=== PATIENT | female | born 1960 | race Caucasian/White ===

== ENCOUNTER 2020-12-16 19:35 | Emergency (ER) | payer OTHER, SELFPAY ==
[2020-12-16 19:46] VITALS: BP 141/48; PULSE 87; RESP 16; TEMP 36.3; O2SAT 97
--- NOTE | 2020-12-16 21:32 | ED.HEATRA ---
HPI - Head Injury General Chief complaint: Head Injury Stated complaint: Fall, head injury yesterday Time Seen by Provider: 12/16/20 21:20 History of Present Illness HPI Narrative: 60 yo female presents to the ED for a head injury. Fall 2 days ago. Struck her forehead on the ground. No LOC. Moderate pain. Increasing swelling and brusing to the forehead and periorbital region. No vision change, weakness, numbness, confusion, blood thinners. Related Data Allergies Allergy/AdvReac Type Severity Reaction Status Date / Time codeine Allergy Mild Unknown Verified 12/16/20 19:46 Penicillins Allergy Unknown Unknown Verified 12/16/20 19:46 Review of Systems Review of Systems: All systems reviewed & are unremarkable except as noted in HPI and below PMFSH Family History Family History Sibling Family history of chronic obstructive pulmonary disease Family history of diabetes mellitus in first degree relative Father Family history of diabetes mellitus in first degree relative Family history unknown, Onset Age: 63 Mother Family history of malignant neoplasm, Onset Age: 53 Other Diabetes mellitus Family history of cardiovascular disease Hypertension Social History Social History Smoking status: Heavy tobacco smoker Second hand tobacco smoke exposure: No Alcohol intake: never Gender identity (if verbalized by the patient): Female Exam Const: General: no acute distress and alert Orientation/consciousness: patient oriented x3 HENMT: Head: contusion left frontal Ears: TM's normal bilaterally General nose exam: Normal external nose present Face and sinus: sinuses nontender Teeth and gingiva: abnormal dentition Eyes: Conjunctivae: conjunctivae normal Pupils: Equal, round and reactive pupils present EOM: EOM not intact bilaterally Other: Bruising to periorbital region bilaterally Neck: Neck: normal visual inspection Resp: Effort & Inspection: normal respiratory effort Auscultation: clear to auscultation bilaterally Cardio: Rate: regular rate Rhythm: regular rhythm Back/Spine/Pelvis: Cervical Spine: normal cervical lordosis, No Cervical spine tenderness, No step off deformity and cervical ROM abnormal Course Vital Signs Vital signs: Vital Signs Temperature 36.3 C L 12/16/20 19:46 Pulse Rate 87 12/16/20 19:46 Respiratory Rate 16 12/16/20 19:46 Blood Pressure 141/48 H 12/16/20 19:46 Pulse Oximetry 97 12/16/20 19:46 Temperature 36.4 C L 12/16/20 22:08 Pulse Rate 86 12/16/20 22:08 Respiratory Rate 18 12/16/20 22:08 Blood Pressure 135/82 12/16/20 22:08 Pulse Oximetry 95 12/16/20 22:08 MDM - Head Injury MDM Narrative Medical decision making narrative: No indication for imaging. Differential Diagnosis Differential diagnosis: Likely concussion without loss of consciousness and other Medical Records Attestation: I reviewed the patient's medical records. Discharge Plan Discharge Clinical Impression: Scalp hematoma Patient Disposition: Home, Self-Care Condition: Stable Instructions: Head Injury (ED), Hematoma (ED) Follow-up/Referrals: Juancarlos,Minda Delgado MD [Primary Care Provider] - Stand Alone Forms: Work/School Release IP
[2020-12-16 22:08] VITALS: BP 135/82; PULSE 86; RESP 18; TEMP 36.4; O2SAT 95
== END 2020-12-16 22:08 | disposition home or self-care (01) ==
LOC: ANHED 21:40
PROVIDERS: Emergency Provider Emergency Medicine; PCP Family Medicine
DX: S00.83XA Contusion of other part of head, initial encounter (principal); S05.12XA Contusion of eyeball and orbital tissues, left eye, initial encounter; S05.11XA Contusion of eyeball and orbital tissues, right eye, initial encounter; F17.200 Nicotine dependence, unspecified, uncomplicated; W19.XXXA Unspecified fall, initial encounter
CPT/HCPCS: 99282

== ENCOUNTER 2022-06-11 10:02 | Emergency (ER) | payer OTHER, SELFPAY ==
--- NOTE | ~2022-06-11 | XR_ITS ---
Clinical Indication: Wheezing, hypertension PA and lateral views of the chest: Comparison: 04/26/2008 Findings: Probable calcified left upper lobe granuloma. The lungs are otherwise clear, without eviden ce of focal consolidation or pleural effusion. Cardiomediastinal silhouette is within normal limits. Bones and soft tissues are unremarkable. Impression: No significant abnormality seen. Reviewed, dictated and finalized at location . ESS DIRECTOR Impression: No significant abnormality seen.
--- NOTE | 2022-06-11 10:08 | ED.URI ---
HPI - URI/Sore Throat General Chief Complaint: Upper Respiratory Infection Stated Complaint: uri Time Seen by Provider: 06/11/22 10:15 Source: patient and RN notes reviewed Mode of arrival: ambulatory Limitations: no limitations History of Present Illness HPI Narrative: 62-year-old female presents concern for cough and chills for 2 days. She reports she had flu 2 weeks ago and no symptoms improved. She reports she was told she had COPD, she has prescribed inhalers that she does not use because ?she does not need them.? MD elicited complaint: cough Related Data Home Medications Medication Instructions Recorded Confirmed atorvastatin 20 mg tablet mg 06/11/22 lorazepam 06/11/22 trazodone 100 mg tablet mg 06/11/22 Allergies Allergy/AdvReac Type Severity Reaction Status Date / Time codeine Allergy Mild Unknown Verified 06/11/22 10:09 Penicillins Allergy Unknown Unknown Verified 06/11/22 10:09 Review of Systems Review of Systems: CONSTITUTIONAL: Reports malaise, chills, sweats EYES: Denies visual changes, redness, or discharge. ENT: Reports rhinorrhea, congestion. Denies sinus pain, otalgia and sore throat. CARDIOVASCULAR: Denies chest pain, palpitations, or edema. RESPIRATORY: Reports cough, chest congestion. Denies dyspnea. GASTROINTESTINAL: Denies abdominal pain, nausea, vomiting, diarrhea SKIN: Denies rash or itching. MUSCULOSKELETAL: Reports myalgia. NEUROLOGIC: Denies headache. All systems reviewed & are unremarkable except as noted in HPI and below PMFSH Family History Family History Sibling Family history of chronic obstructive pulmonary disease Family history of diabetes mellitus in first degree relative Father Family history of diabetes mellitus in first degree relative Family history unknown, Onset Age: 63 Mother Family history of malignant neoplasm, Onset Age: 53 Other Diabetes mellitus Family history of cardiovascular disease Hypertension Social History Social History Smoking status: Heavy tobacco smoker Second hand tobacco smoke exposure: No Alcohol intake: never Gender identity (if verbalized by the patient): Female Comments At time of signature, agree with nursing past medical, surgical, social and family history. There is no relevant family history pertinent to the presenting complaint Exam Narrative: GENERAL: Well-appearing, well-nourished, and in no acute distress. HEAD: Normocephalic EYES: PERRLA, conjunctivae clear ENT: Nares clear, clear discharge. Mucous membranes moist. TM pearly collins with dull light reflex bilaterally; no tragal tenderness. Oropharynx erythematous without lesions. Tonsils not enlarged and without exudate, no drooling, no hoarseness, no trismus, uvula midline. NECK: Supple. No lymphadenopathy CHEST: Expiratory and expiratory wheeze noted throughout, aeration good. Clear to auscultation, breath sounds equal. No rhonchi, rales, or stridor. No respiratory distress, speaks in full sentences. HEART: Regular rate and rhythm. No murmur heard. SKIN: Warm, dry, no rash. NEURO: Alert and oriented x3. PSYCH: Normal mood and affect Course Course Emergency Course: Patient is aware of diagnosis, understands and agrees to treatment plan. Anticipatory guidance given. Patient agrees to follow-up as directed and is aware of reasons to seek care at the emergency department. Portions of this record may have been created with voice recognition software Level of Care: Express Care Visit Vital Signs Vital signs: Reviewed. MDM - URI/Sore Throat MDM Narrative Medical decision making narrative: Differential diagnosis considered: Gonzalez virus, strep pharyngitis, allergic rhinitis, upper respiratory tract infection, sinusitis, rhinosinusitis, nasopharyngitis. viral pharyngitis, otitis media, otitis externa, pneumonia, bronchit
[2022-06-11 10:13] VITALS: BP 144/54; PULSE 74; RESP 16; TEMP 36.8; O2SAT 97
== END 2022-06-11 11:07 | disposition home or self-care (01) ==
PROVIDERS: Emergency Provider Nurse Practitioner; PCP Nurse Practitioner Family
DX: J44.1 Chronic obstructive pulmonary disease with (acute) exacerbation (principal); Z20.822 Contact with and (suspected) exposure to COVID-19; F17.290 Nicotine dependence, other tobacco product, uncomplicated
CPT/HCPCS: 71046; 87426; 99213; C9803; G0463

== ENCOUNTER 2023-07-12 08:17 | Emergency (ER) | payer OTHER, SELFPAY ==
[2023-07-12 08:26] VITALS: BP 133/64; PULSE 72; RESP 16; TEMP 36.3; O2SAT 99
--- NOTE | 2023-07-12 08:43 | ED.URI ---
HPI - URI/Sore Throat General Chief Complaint: Upper Respiratory Infection Stated Complaint: Sinus/Ears Irritation Time Seen by Provider: 07/12/23 08:43 Source: patient Mode of arrival: ambulatory Limitations: no limitations History of Present Illness HPI Narrative: 63-year-old female presents with complaint nasal congestion, sinus pressure, headache for the past 4 days. Afebrile. No coughing. Sore throat painful at night and in the morning due to drainage. Took a few doses of cold and sinus medication but states was not working so she stopped. Hai states this is the longest she has had a cold and thinks she needs a Z-Ted. Patient well-appearing. All systems reviewed and negative except as noted above. Related Data Home Medications Medication Instructions Recorded Confirmed atorvastatin 20 mg tablet 20 mg PO DAILY 06/11/22 07/12/23 trazodone 100 mg tablet 100 mg PO DAILY 06/11/22 07/12/23 carisoprodol 250 mg tablet See Rx Instructions .Route .COMPLEX 07/12/23 07/12/23 hydrochlorothiazide 25 mg tablet 25 mg PO DAILY 07/12/23 07/12/23 lorazepam 1 mg tablet 1 mg PO TID 07/12/23 07/12/23 nicotine 14 mg/24 hr daily 14 mg transdermal DAILY 07/12/23 07/12/23 transdermal patch zolpidem 5 mg tablet 5 mg PO DAILY 07/12/23 07/12/23 Allergies Allergy/AdvReac Type Severity Reaction Status Date / Time codeine Allergy Mild Itching Verified 07/12/23 08:51 Penicillins Allergy Mild Rash Verified 07/12/23 08:51 Review of Systems Review of Systems: CONSTITUTIONAL: Denies fever, chills, or sweats. EYES: Denies visual changes, redness, or discharge. ENT: Reports rhinorrhea, congestion, sore throat. Denies otalgia. CARDIOVASCULAR: Denies chest pain, palpitations, or edema. RESPIRATORY: Denies cough or dyspnea. GASTROINTESTINAL: Denies abdominal pain, nausea, vomiting, or diarrhea. GENITOURINARY: Denies dysuria or hematuria. SKIN: Denies rash or itching. MUSCULOSKELETAL: Denies back pain, joint pain, or myalgia. NEUROLOGIC: Denies headache, numbness, or weakness. PSYCHIATRIC: Denies anxiety or depression. All other systems reviewed are negative, except as documented in HPI. PMFSH Family History Family History Sibling Family history of chronic obstructive pulmonary disease Family history of diabetes mellitus in first degree relative Father Family history of diabetes mellitus in first degree relative Family history unknown, Onset Age: 63 Mother Family history of malignant neoplasm, Onset Age: 53 Other Diabetes mellitus Family history of cardiovascular disease Hypertension Social History Social History Smoking status: Heavy tobacco smoker Second hand tobacco smoke exposure: No Alcohol intake: never Gender identity (if verbalized by the patient): Female Comments At time of signature, agree with nursing past medical, surgical, social and family history. There is no relevant family history pertinent to the presenting complaint. Exam Narrative: GENERAL: This is a well-nourished, well-developed patient, in no apparent distress. HEAD: normocephalic, atraumatic. EYES: PERRL. Sclera clear/white. Vision is grossly intact. EARS: External ears normal, auditory canals clear and without drainage, TMs normal without perforation. Hearing grossly intact. NOSE: External nose normal with clear nasal drainage, erythema and mild swelling to bilateral nares. THROAT: Mucous membranes moist, Erythema with postnasal drainage NECK: Neck supple, non-tender without lymphadenopathy, masses or thyromegaly. CARDIOVASCULAR: Regular rate and rhythm without murmurs, gallops, or rubs. RESPIRATORY: Clear to auscultation. Breath sounds equal bilaterally. No wheezes, rales, or rhonchi. SKIN: warm, Dry, intact with no suspicious lesions or rash, good texture and turgor. NEURO: awake, alert, an
== END 2023-07-12 08:59 | disposition home or self-care (01) ==
PROVIDERS: Emergency Provider Nurse Practitioner Family; PCP Family Medicine
DX: J01.90 Acute sinusitis, unspecified (principal); F17.200 Nicotine dependence, unspecified, uncomplicated; E78.00 Pure hypercholesterolemia, unspecified; I10 Essential (primary) hypertension; J44.9 Chronic obstructive pulmonary disease, unspecified; F41.9 Anxiety disorder, unspecified; Z86.16 Personal history of COVID-19
CPT/HCPCS: 87081; 87880; 99213; G0463

== ENCOUNTER 2023-09-04 08:15 | Emergency (ER) | payer OTHER, SELFPAY ==
--- NOTE | ~2023-09-04 | CT_ITS ---
EXAMINATION: CT diagnostic chest w con DATE: 09/04/2023 10:06 INDICATION: right medial clavicle swelling TECHNIQUE: Computed tomography (CT) of the chest was performed with 100 mL Omnipaque-350 intravenous contrast. Additional 3D reconstructions utilizing coronal maximum intensity projection (MIP) were per formed. Automated exposure control and iterative reconstruction technique were employed. The dose-dangelo gth product was 356.27 mGy-cm. COMPARISON: None FINDINGS: Dependent predominant mosaic attenuation in the lungs likely related to expiratory phase of imaging w ith atelectasis and subsegmental regions of air trapping related to small airway disease. Cluster of calcified nodules in the posterior lingula and calcified left hilar lymph nodes consistent with old g ranulomatous disease. No pneumonia, pulmonary edema, pleural effusion or pneumothorax. Heart size is normal. No pericardial effusion. Ectatic ascending thoracic aorta measuring up to 3.9 cm maximal diam eter. No aortic dissection. No pathologically enlarged thoracic lymphadenopathy. Diffuse scattered sm all hepatic and splenic calcifications consistent with old granulomatous disease. The marker indicati ng the region of concern is positioned anterior to the inferior neck slightly to the right of midline overlying the right thyroid lobe where there is a 1.3 cm right thyroid nodule. No other abnormal mas ses or fluid collections identified. Severe lower cervical and lower thoracic spondylosis with mild s pondylosis of the more cephalad thoracic spine. IMPRESSION: 1. No etiology identified for the reported swelling at the medial right clavicle. No acute cardiopulm onary disease. 2. 1.3 cm right thyroid nodule. Could consider thyroid ultrasound for risk stratification. Reviewed, dictated and finalized at location A. IMPRESSION: 1. No etiology identified for the reported swelling at the medial right clavicl e. No acute cardiopulmonary disease. 2. 1.3 cm right thyroid nodule. Could consider thyroid ultrasound for risk stra tification.
[2023-09-04 08:16] VITALS: BP 140/65; PULSE 80; RESP 16; TEMP 36.6; O2SAT 97
[2023-09-04 09:02] LABS: Basophils Absolute Auto 0.1 K/mm3 (0.0-0.1); Basophils Percent Auto 0.7 % (0.2-1.2); Eosinophils Absolute Auto 0.4 K/mm3 (0-0.3); Eosinophils Percent Auto 4.4 % (0-4.4); Hematocrit 41.9 % (37.0-47.0); Immature Granulocyte Absolute 0.03 K/mm3 (0.00-0.031); Immature Granulocyte Percent A 0.4 % (0-0.5); Lymphocytes Absolute Auto 2.36 K/mm3 (0.9-3.2); Lymphocytes Percent Auto 29.4 % (18.3-44.2); Mean Corpuscular HGB Conc 33.4 g/dl (32-36); Mean Corpuscular Hemoglobin 30.5 pg (26-34); Mean Corpuscular Volume 91.3 fl (80-100); Mean Platelet Volume 10.3 fl (7.4-10.4); Monocytes Absolute Auto 0.6 K/mm3 (0.1-0.6); Monocytes Percent Auto 7.5 % (2.6-8.5); Neutrophils Absolute Auto 4.6 K/mm3 (1.3-6.7); Neutrophils Percent Auto 57.6 % (45.5-73.1); Platelet Count Result 231 k/mm3 (150-375); Red Blood Count 4.59 M/mm3 (4.2-5.4); Red Cell Distribution Width 13.1 % (11.5-14.5)
[2023-09-04 09:11] LABS: Alanine Aminotransferase 16 U/L (6-35); Albumin Level 4.3 g/dL (3.5-5.1); Alkaline Phosphatase 93 U/L (38-126); Anion Gap 7 mmol/L (4-12); Aspartate Amino Transferase 21 U/L (14-36); Bilirubin,Total 0.3 mg/dL (0.2-1.3); Blood Urea Nitrogen 20 mg/dL (7-17); Calcium 9.6 mg/dL (8.4-10.2); Carbon Dioxide 24 mmol/L (22-30); Chloride 109 mmol/L (98-107); Estimated CRCL calculation 87 ml/min; Estimated Glomerular Filt Rate > 60; Glucose 144 mg/dL (65-110); Potassium 3.6 mmol/L (3.4-5.0); Sodium 140 mmol/L (137-145)
--- NOTE | 2023-09-04 09:27 | ED.GENADULT ---
HPI - General Adult General Chief complaint: Unspecified Stated complaint: knot on my neck Time Seen by Provider: 09/04/23 08:31 History of Present Illness HPI narrative: 63-year-old female presented to the emergency department for evaluation swelling over her right medial clavicle. Patient states this has been ongoing for the last 3 weeks. Patient does have a family history of lymphoma patient was concerned. Patient denies any difficulty breathing or swallowing. Related Data Home Medications Medication Instructions Recorded Confirmed atorvastatin 20 mg tablet 20 mg PO DAILY 06/11/22 07/12/23 trazodone 100 mg tablet 100 mg PO DAILY 06/11/22 07/12/23 carisoprodol 250 mg tablet See Rx Instructions .Route .COMPLEX 07/12/23 07/12/23 hydrochlorothiazide 25 mg tablet 25 mg PO DAILY 07/12/23 07/12/23 lorazepam 1 mg tablet 1 mg PO TID 07/12/23 07/12/23 nicotine 14 mg/24 hr daily 14 mg transdermal DAILY 07/12/23 07/12/23 transdermal patch zolpidem 5 mg tablet 5 mg PO DAILY 07/12/23 07/12/23 Allergies Allergy/AdvReac Type Severity Reaction Status Date / Time codeine Allergy Mild Itching Verified 07/12/23 08:51 Penicillins Allergy Mild Rash Verified 07/12/23 08:51 Review of Systems Review of Systems: All systems reviewed & are unremarkable except as noted in HPI and below PMFSH Family History Family History Sibling Family history of chronic obstructive pulmonary disease Family history of diabetes mellitus in first degree relative Father Family history of diabetes mellitus in first degree relative Family history unknown, Onset Age: 63 Mother Family history of malignant neoplasm, Onset Age: 53 Other Diabetes mellitus Family history of cardiovascular disease Hypertension Social History Social History Smoking status: Heavy tobacco smoker Second hand tobacco smoke exposure: No Alcohol intake: never Gender identity (if verbalized by the patient): Female Exam Narrative: APPEARANCE: Well appearing, no pain, no distress, well-nourished. HEAD: normocephalic, atraumatic. EYES: PERRLA/EOMI, conjunctivae clear. NECK: Supple. No adenopathy, no masses. RESPIRATORY: Airway patent, respirations nonlabored. Clear to auscultation bilaterally, no rales, rhonchi, wheezing. CARDIOVASCULAR: Regular rate and rhythm without murmurs rubs or gallops. ABDOMINAL: Soft, nontender, nondistended, normal bowel sounds MUSCULOSKELETAL: Patient indicates medial clavicle on the right as the site of the swelling, no significant swelling palpated. NEURO: Alert. Cranial nerves II through XII intact. SKIN: Warm, dry. Normal Color Course Vital Signs Vital signs: Vital Signs Temperature 97.9 F 09/04/23 08:16 Pulse Rate 80 09/04/23 08:16 Respiratory Rate 16 09/04/23 08:16 Blood Pressure 140/65 09/04/23 08:16 Pulse Oximetry 97 09/04/23 08:16 Oxygen Delivery Room Air 09/04/23 08:16 Temperature 97.9 F 09/04/23 08:16 Pulse Rate 74 09/04/23 10:48 Respiratory Rate 16 09/04/23 10:48 Blood Pressure 124/80 09/04/23 10:48 Pulse Oximetry 99 09/04/23 10:48 Oxygen Delivery Room Air 09/04/23 08:16 Medical Decision Making [facility] Narrative Medical decision making narrative: 60-year-old female presents to the emergency department for evaluation swelling her right clavicle, patient is afebrile with no leukocytosis and a stable hemoglobin, no acute abnormalities on the CMP, patient's TSH was normal. CT scan showed no etiology for the patient's symptoms did show a thyroid nodule, patient was advised to have follow-up with her primary care physician for additional imaging Differential Diagnosis Differential Diagnosis: Abscess, mass, clavicle fracture, thyroid nodule Vital Signs Vital Signs: Vital Signs Temperature 97.9 F 09/04/23 08:16 Pulse Rate 80
[2023-09-04 10:48] VITALS: BP 124/80; PULSE 74; RESP 16; O2SAT 99
== END 2023-09-04 10:49 | disposition home or self-care (01) ==
PROVIDERS: Emergency Provider Emergency Medicine; PCP Family Medicine
DX: R22.2 Localized swelling, mass and lump, trunk (principal); E04.1 Nontoxic single thyroid nodule; F17.200 Nicotine dependence, unspecified, uncomplicated
CPT/HCPCS: 36415; 71260; 80053; 84443; 85025; 99284; Q9967

== ENCOUNTER 2023-09-05 09:08 | Emergency (ER) | payer OTHER, SELFPAY ==
--- NOTE | 2023-09-05 09:11 | ED.URI ---
HPI - URI/Sore Throat General Chief Complaint: Upper Respiratory Infection Stated Complaint: cough,not feeling well Time Seen by Provider: 09/05/23 09:11 Source: patient Mode of arrival: ambulatory Limitations: no limitations History of Present Illness HPI Narrative: Patient is a 63-year-old female who presents with 12 hours of congestion, sore throat and cough. Patient took Sudafed with no relief. Patient states she had similar symptoms the beginning of the month and took [id number] medication intermittently with no relief of symptoms. Reports temperature was a 100? this morning. Denies any nausea, vomiting, diarrhea. Related Data Home Medications Medication Instructions Recorded Confirmed atorvastatin 20 mg tablet 20 mg PO DAILY 06/11/22 09/05/23 trazodone 100 mg tablet 100 mg PO DAILY 06/11/22 09/05/23 carisoprodol 250 mg tablet See Rx Instructions .Route .COMPLEX 07/12/23 09/05/23 hydrochlorothiazide 25 mg tablet 25 mg PO DAILY 07/12/23 09/05/23 lorazepam 1 mg tablet 1 mg PO TID 07/12/23 09/05/23 nicotine 14 mg/24 hr daily 14 mg transdermal DAILY 07/12/23 09/05/23 transdermal patch zolpidem 5 mg tablet 5 mg PO DAILY 07/12/23 09/05/23 fluticasone propionate 50 See Rx Instructions .Route .COMPLEX 09/05/23 09/05/23 mcg/actuation nasal spray,suspension phentermine 37.5 mg tablet 37.5 mg PO DAILY 09/05/23 09/05/23 Allergies Allergy/AdvReac Type Severity Reaction Status Date / Time codeine Allergy Mild Itching Verified 09/05/23 09:12 Penicillins Allergy Mild Rash Verified 09/05/23 09:12 Review of Systems Review of Systems: All systems reviewed & are unremarkable except as noted in HPI and below Constitutional: Constitutional: Denies body ache(s), Denies chills, Denies fatigue, Denies fever(s), Denies headache(s), Denies malaise and Denies weakness Eyes: Eyes: Denies blurry vision, Denies itchy eyes and Denies loss of vision ENT: Denies otalgia, Denies headache(s), Reports nasal congestion, Denies sinus pain and Reports sore throat Cardiovascular: Cardiovascular: Denies chest pain, Denies irregular heart rhythm and Denies dyspnea Respiratory: Respiratory: Reports cough and Denies dyspnea Gastrointestinal: Gastrointestinal: Denies abdominal pain, Denies diarrhea, Denies nausea and Denies vomiting Musculoskeletal: Musculoskeletal: Denies back pain, Denies myalgias and Denies arthralgias Integumentary/Breasts: Skin/Breast: Denies pruritus and Denies rash Neurologic: Denies headache(s), Denies loss of vision and Denies weakness Psychiatric: Psychiatric: Reports no additional psychiatric complaints Endocrine: Endocrine: Denies fatigue Allergic/Immunologic: Allergic/Immunologic: Denies itchy eyes PMFSH Family History Family History Sibling Family history of chronic obstructive pulmonary disease Family history of diabetes mellitus in first degree relative Father Family history of diabetes mellitus in first degree relative Family history unknown, Onset Age: 63 Mother Family history of malignant neoplasm, Onset Age: 53 Other Diabetes mellitus Family history of cardiovascular disease Hypertension Social History Social History Smoking status: Heavy tobacco smoker Second hand tobacco smoke exposure: No Alcohol intake: never Gender identity (if verbalized by the patient): Female Comments At time of signature, agree with nursing past medical, surgical, social and family history. There is no relevant family history pertinent to the presenting complaint. Exam Const: General: cooperative, healthy appearing, comfortable, no acute distress and well nourished Nutritional Appearance: well nourished Orientation/consciousness: patient oriented x3 Limitations: no limitations HENMT: Head: normal to inspection, normocephalic and atraumatic Ears: hearing meliza
[2023-09-05 09:17] VITALS: BP 128/57; PULSE 86; RESP 16; TEMP 37; O2SAT 97
[2023-09-05 09:23] VITALS: BP 128/57; PULSE 86; RESP 16; TEMP 37; O2SAT 97
== END 2023-09-05 10:01 | disposition home or self-care (01) ==
PROVIDERS: Emergency Provider Nurse Practitioner Family; PCP Family Medicine
DX: J06.9 Acute upper respiratory infection, unspecified (principal); Z20.822 Contact with and (suspected) exposure to COVID-19; E78.00 Pure hypercholesterolemia, unspecified; I10 Essential (primary) hypertension; J44.9 Chronic obstructive pulmonary disease, unspecified; F41.9 Anxiety disorder, unspecified; Z86.16 Personal history of COVID-19
CPT/HCPCS: 87426; 87804; 99213; G0463

== ENCOUNTER 2023-10-20 13:52 | Outpatient (CLI) | payer OTHER, SELFPAY ==
--- NOTE | ~2023-10-20 | US_ITS ---
EXAMINATION: US thyroid DATE: 10/20/2023 15:11 INDICATION: Thyroid nodule. TECHNIQUE: Multiple ultrasound images of the thyroid were obtained. COMPARISON: Chest CT 09/04/2023 FINDINGS: The right thyroid lobe measures 4.9 x 1.9 x 2.2 cm. The left thyroid lobe measures 4.3 x 1.8 x 1.6 c m. In the right thyroid lobe, there is a 16 mm solid, hypoechoic, wider than tall nodule with lobula christian margin without echogenic foci (TI-RADS TR4). In the left thyroid lobe, there is a 9 mm solid, hyp oechoic, wider than tall nodule with smooth margin without echogenic foci (TR4). IMPRESSION: 1. Thyroid nodules. Ultrasound-guided fine-needle aspiration of the 16 mm right thyroid nodule is rec ommended. Reviewed, dictated and finalized at location A. IMPRESSION: 1. Thyroid nodules. Ultrasound-guided fine-needle aspiration of the 16 mm right thyroid nodule is recommended.
== END 2023-10-20 13:53 | disposition home or self-care (01) ==
LOC: ANHIMG 13:55
PROVIDERS: PCP Family Medicine; Visit Provider Family Medicine
DX: E04.2 Nontoxic multinodular goiter (principal)
CPT/HCPCS: 76536

== ENCOUNTER 2023-11-06 08:53 | Emergency (ER) | payer OTHER, SELFPAY ==
--- NOTE | ~2023-11-06 | XR_ITS ---
EXAMINATION: XR knee RT 3V DATE: 11/06/2023 09:27 INDICATION: Right knee pain. TECHNIQUE: 3 views of right knee were obtained. COMPARISON: None. FINDINGS: Bone alignment is normal. No fracture. There is moderate osteoarthritis of medial compartme nt and mild osteoarthritis of lateral and patellofemoral compartments. No knee joint effusion. IMPRESSION: 1. Moderate right knee osteoarthritis. Reviewed, dictated and finalized at location A.
--- NOTE | 2023-11-06 09:02 | ED.GENADULT ---
HPI - General Adult General Chief complaint: Fall Stated complaint: left side injury,right knee/shoulder pain Time Seen by Provider: 11/06/23 09:06 Source: patient, RN notes reviewed and old records reviewed Mode of arrival: ambulatory Limitations: no limitations History of Present Illness HPI narrative: 63-year-old female to pain bruising to the right knee post about 2 days ago. Patient reports that she was caring a sweeper when she tripped over a dog's leash fell. Patient denies hitting head, no loss of consciousness. Bruising noted to the medial aspect upper portion of the knee/femur area Patient also on left lateral abdomen bruising without tenderness. No midline tenderness. No loss/retention bowel or bladder. Walks with a normal gait. Treatments prior to arrival: other (tylenol) Related Data Home Medications Medication Instructions Recorded Confirmed atorvastatin 20 mg tablet 20 mg PO DAILY 06/11/22 11/06/23 trazodone 100 mg tablet 100 mg PO DAILY 06/11/22 11/06/23 carisoprodol 250 mg tablet See Rx Instructions .Route .COMPLEX 07/12/23 11/06/23 hydrochlorothiazide 25 mg tablet 25 mg PO DAILY 07/12/23 11/06/23 lorazepam 1 mg tablet 1 mg PO TID 07/12/23 11/06/23 nicotine 14 mg/24 hr daily 14 mg transdermal DAILY 07/12/23 11/06/23 transdermal patch zolpidem 5 mg tablet 5 mg PO DAILY 07/12/23 11/06/23 fluticasone propionate 50 See Rx Instructions .Route .COMPLEX 09/05/23 11/06/23 mcg/actuation nasal spray,suspension phentermine 37.5 mg tablet 37.5 mg PO DAILY 09/05/23 11/06/23 Allergies Allergy/AdvReac Type Severity Reaction Status Date / Time codeine Allergy Mild Itching Verified 11/06/23 09:12 Penicillins Allergy Mild Rash Verified 11/06/23 09:12 Review of Systems Review of Systems: All systems reviewed & are unremarkable except as noted in HPI and below Constitutional: Constitutional: Reports no additional constitutional complaints Eyes: Eyes: Reports no additional eye complaints ENT: Reports system reviewed and no additional complaints, except as documented Cardiovascular: Cardiovascular: Reports no additional cardiovascular complaints, Denies chest pain and Denies dyspnea Respiratory: Respiratory: Reports no additional respiratory complaints, Denies chest congestion, Denies cough and Denies dyspnea Gastrointestinal: Gastrointestinal: Reports no additional gastrointestinal complaints, Denies abdominal pain, Denies nausea and Denies vomiting Musculoskeletal: Musculoskeletal: Reports as per HPI and Reports arthralgias (right knee) Integumentary/Breasts: Skin/Breast: Reports as per HPI and Reports unusual bruising (right knee, left abd) Neurologic: Reports system reviewed and no additional complaints, except as documented Psychiatric: Psychiatric: Reports no additional psychiatric complaints Allergic/Immunologic: Allergic/Immunologic: Reports no additional allergic/immunologic complaints [facility] Past Medical History Medical History Anxiety High cholesterol History of high blood pressure Insomnia Family History Family History Sibling Family history of chronic obstructive pulmonary disease Family history of diabetes mellitus in first degree relative Father Family history of diabetes mellitus in first degree relative Family history unknown, Onset Age: 63 Mother Family history of malignant neoplasm, Onset Age: 53 Other Diabetes mellitus Family history of cardiovascular disease Hypertension Social History Social History Smoking status: Heavy tobacco smoker Second hand tobacco smoke exposure: No Alcohol intake: never Gender identity (if verbalized by the patient): Female Comments At the time of my signature, I reviewed and agree with the nursing past medical, surgical, social, and family histo
[2023-11-06 09:05] VITALS: BP 135/61; PULSE 66; RESP 16; TEMP 36.7; O2SAT 98
== END 2023-11-06 10:08 | disposition home or self-care (01) ==
PROVIDERS: Emergency Provider Nurse Practitioner; PCP Nurse Practitioner Family
DX: S80.01XA Contusion of right knee, initial encounter (principal); S30.1XXA Contusion of abdominal wall, initial encounter; W18.09XA Striking against other object with subsequent fall, initial encounter; M17.11 Unilateral primary osteoarthritis, right knee; F17.200 Nicotine dependence, unspecified, uncomplicated; E78.00 Pure hypercholesterolemia, unspecified; I10 Essential (primary) hypertension; F41.9 Anxiety disorder, unspecified
CPT/HCPCS: 73562; 99213; G0463

== ENCOUNTER 2023-11-07 20:30 | Emergency (ER) | payer OTHER, SELFPAY ==
--- NOTE | ~2023-11-07 | CT_ITS ---
CT abdomen pelvis w con Ordering provider: Edvin Schaffer MD History: 63 years Female with . Abdominal trauma large bruise in the left lower qu . Comparison: None. Technique: CT abdomen and pelvis with IV and without oral contrast. Radiation reduction technique u tilized. DLP is 906.18 mGy. 100 mL Omnipaque 350 was given IV. Findings: VISUALIZED LOWER CHEST: Minimal atelectatic changes in the right middle lobe.. Trace of pleural effus ion both sides or pleural thickening. UPPER ABDOMINAL ORGANS: Liver: Mild fat infiltration. Hepatomegaly. Gallbladder: Normal. Spleen: Benign calcifications. Stomach/duodenum: Normal. Pancreas: Normal. Adrenals: Normal. Kidneys: Normal. PELVIC ORGANS: The bladder is normal. Uterus is normal.. BOWEL AND MESENTERY: Colon: No evidence of diverticulitis. Normal appendix. Small Bowel: Normal. No obstruction. Peritoneum/mesentery: No free air or free fluid. No mesenteric lymphadenopathy. RETROPERITONEUM: Mild atheromatous disease of the abdominal aorta. No retroperitoneal lymphadenopat hy. MUSCULOSKELETAL: Superficial soft tissues: Minimal fat stranding in the left lateral abdominal wall. Otherwise, [place] perficial soft tissues are normal. Bones: Age appropriate degenerative changes of the spine. Bilateral sacroiliacs. Mild dextroscoliosis . IMPRESSION: 1. No acute abdominal process. 2. Hepatomegaly with mild fat infiltration. 3. Minimal fat stranding in the left lateral abdominal wall. Reviewed, dictated and finalized at location A.
[2023-11-07 20:32] VITALS: BP 135/63; PULSE 72; RESP 20; TEMP 36.3; O2SAT 97
--- NOTE | 2023-11-07 21:42 | PC.NURSE ---
Patient called and no answer, not seen in waiting room at this time. Will call again.
[2023-11-07 23:20] LABS: Basophils Absolute Auto 0.1 K/mm3 (0.0-0.1); Basophils Percent Auto 0.8 % (0.2-1.2); Eosinophils Absolute Auto 0.4 K/mm3 (0-0.3); Eosinophils Percent Auto 3.8 % (0-4.4); Hematocrit 41.2 % (37.0-47.0); Hemoglobin 13.7 g/dL (12.0-15.0); Immature Granulocyte Absolute 0.02 K/mm3 (0.00-0.031); Immature Granulocyte Percent A 0.2 % (0-0.5); Lymphocytes Absolute Auto 3.05 K/mm3 (0.9-3.2); Mean Corpuscular HGB Conc 33.3 g/dl (32-36); Mean Corpuscular Hemoglobin 30.9 pg (26-34); Mean Platelet Volume 9.8 fl (7.4-10.4); Monocytes Absolute Auto 0.7 K/mm3 (0.1-0.6); Monocytes Percent Auto 7.6 % (2.6-8.5); Neutrophils Percent Auto 54.6 % (45.5-73.1); Platelet Count Result 252 k/mm3 (150-375); Red Blood Count 4.43 M/mm3 (4.2-5.4); Red Cell Distribution Width 13.1 % (11.5-14.5); White Blood Count 9.2 K/mm3 (4.5-10.0)
[2023-11-07 23:30] LABS: INR 0.9; Prothrombin Time 12.7 Seconds (11.1-14.7)
[2023-11-07 23:31] LABS: Alanine Aminotransferase 17 U/L (6-35); Albumin Level 4.3 g/dL (3.5-5.1); Alkaline Phosphatase 82 U/L (38-126); Anion Gap 7 mmol/L (4-12); Aspartate Amino Transferase 23 U/L (14-36); Bilirubin,Total 0.3 mg/dL (0.2-1.3); Blood Urea Nitrogen 17 mg/dL (7-17); Calcium 9.2 mg/dL (8.4-10.2); Carbon Dioxide 28 mmol/L (22-30); Chloride 106 mmol/L (98-107); Estimated CRCL calculation 74 ml/min; Estimated Glomerular Filt Rate > 60; Glucose 151 mg/dL (65-110); Lipase 79 U/L (23-300); Partial Thromboplastin Time 29.5 Seconds (22.3-36.8); Potassium 3.4 mmol/L (3.4-5.0); Sodium 141 mmol/L (137-145)
[2023-11-07 23:45] VITALS: BP 110/57; PULSE 78; RESP 15; O2SAT 95
--- NOTE | 2023-11-08 01:02 | ED.GENADULT ---
HPI - General Adult General Chief complaint: Fall Stated complaint: fall, right-sided bruising Time Seen by Provider: 11/07/23 22:40 History of Present Illness HPI narrative: Patient is a 63-year-old female who presents emergency department with chief complaint of abdominal bruising. Patient reports that 2 days ago she tripped down a stairs carry a vacuum reports that she had a bruise present on her abdomen the patient reports she was seen in urgent care and they recommended that she come to the emergency department for imaging of her abdomen to make sure there was not intra-abdominal injury. The patient refused coming to the ER that day and decided to come today to be evaluated. The patient reports that she has pain in the bruising area of her abdomen Related Data Home Medications Medication Instructions Recorded Confirmed atorvastatin 20 mg tablet 20 mg PO DAILY 06/11/22 11/06/23 trazodone 100 mg tablet 100 mg PO DAILY 06/11/22 11/06/23 carisoprodol 250 mg tablet See Rx Instructions .Route .COMPLEX 07/12/23 11/06/23 hydrochlorothiazide 25 mg tablet 25 mg PO DAILY 07/12/23 11/06/23 lorazepam 1 mg tablet 1 mg PO TID 07/12/23 11/06/23 nicotine 14 mg/24 hr daily 14 mg transdermal DAILY 07/12/23 11/06/23 transdermal patch zolpidem 5 mg tablet 5 mg PO DAILY 07/12/23 11/06/23 fluticasone propionate 50 See Rx Instructions .Route .COMPLEX 09/05/23 11/06/23 mcg/actuation nasal spray,suspension phentermine 37.5 mg tablet 37.5 mg PO DAILY 09/05/23 11/06/23 Allergies Allergy/AdvReac Type Severity Reaction Status Date / Time codeine Allergy Mild Itching Verified 11/07/23 20:36 Penicillins Allergy Mild Rash Verified 11/07/23 20:36 Review of Systems Review of Systems: A 10 system review of systems was completed on the patient and is negative except for what is stated in the HPI. Nursing and ancillary documentation was reviewed. [facility] Past Medical History Medical History Anxiety High cholesterol History of high blood pressure Insomnia Family History Family History Sibling Family history of chronic obstructive pulmonary disease Family history of diabetes mellitus in first degree relative Father Family history of diabetes mellitus in first degree relative Family history unknown, Onset Age: 63 Mother Family history of malignant neoplasm, Onset Age: 53 Other Diabetes mellitus Family history of cardiovascular disease Hypertension Social History Social History Smoking status: Heavy tobacco smoker Second hand tobacco smoke exposure: No Alcohol intake: never Gender identity (if verbalized by the patient): Female Exam Narrative: GENERAL: Well-appearing, well-nourished, and in no acute distress. HEAD: Normocephalic, atraumatic. EYES: PERRLA and EOMI. ENT: Nares clear, no rhinorrhea or epistaxis. Mucous membranes moist. NECK: Supple. CHEST: Clear to auscultation. No respiratory distress. HEART: Regular rate and rhythm. No murmur heard. Normal peripheral pulses. ABDOMEN: Soft, nontender, nondistended, normal active bowel sounds. EXTREMITIES: Normal range of motion. No edema. There is an Yogesh wrap applied to the right knee SKIN: Warm, dry, no rash. There is bruising present to the left lower quadrant of the abdomen NEURO: No focal deficits. Alert and oriented x3. PSYCH: Normal mood and affect. Course Vital Signs Vital signs: Vital Signs Temperature 36.3 C L 11/07/23 20:32 Pulse Rate 72 11/07/23 20:32 Respiratory Rate 20 11/07/23 20:32 Blood Pressure 135/63 11/07/23 20:32 Pulse Oximetry 97 11/07/23 20:32 Oxygen Delivery Room Air 11/07/23 20:32 Temperature 36.3 C L 11/07/23 20:32 Pulse Rate 78 11/07/23 23:45 Respiratory Rate 15 11/07/23 23:45
[2023-11-08] MEDS: KETOROLAC 30 MG/ML VIAL (*BKC) IV PUSH (01:25)
[2023-11-08 01:29] VITALS: BP 122/64; PULSE 71; RESP 15; O2SAT 99
== END 2023-11-08 01:31 | disposition home or self-care (01) ==
PROVIDERS: Emergency Provider Emergency Medicine; PCP Nurse Practitioner Family
DX: S30.1XXA Contusion of abdominal wall, initial encounter (principal); I10 Essential (primary) hypertension; E78.00 Pure hypercholesterolemia, unspecified; F41.9 Anxiety disorder, unspecified; F17.200 Nicotine dependence, unspecified, uncomplicated; K76.0 Fatty (change of) liver, not elsewhere classified; Z79.899 Other long term (current) drug therapy; W10.9XXA Fall (on) (from) unspecified stairs and steps, initial encounter
CPT/HCPCS: 36415; 74177; 80053; 83690; 85025; 85610; 85730; 96374; 99284; J1885; Q9967

== ENCOUNTER 2023-12-03 12:20 | Outpatient (CLI) | payer OTHER, SELFPAY ==
--- NOTE | ~2023-12-03 | US_ITS ---
EXAMINATION: US FNA w image guidance DATE: 12/03/2023 13:20 INDICATION: Nontoxic single thyroid nodule TECHNIQUE: A time-out was performed to verify the patient's name, date of , and procedure to be performed . The procedure and its benefits and risks were discussed with the patient. Risks specifically discus sed included bleeding and infection. The patient understood the risks and agreed to proceed. The neck was prepped and draped in the usual sterile manner. 5 mL 1% lidocaine was used for local anesthesia . 6 passes were made with a 25G needle into the lesion. Appropriate needle location was documented with continuous sonographic guidance. A sterile bandage was applied. There were no immediate compli cations. FINDINGS: Grayscale ultrasound images demonstrate biopsy needles advanced into the previously noted 1.6 cm TI R ADS 4 right thyroid nodule. IMPRESSION: 1. Successful ultrasound-guided fine needle aspiration of the 1.6 cm TI RADS 4 right thyroid nodule of concern. Reviewed, dictated and finalized at location A.
== END 2023-12-03 12:21 | disposition home or self-care (01) ==
LOC: ANHIMG 12:21
PROVIDERS: PCP Nurse Practitioner Family; Visit Provider Nurse Practitioner Family
DX: E04.1 Nontoxic single thyroid nodule (principal)
CPT/HCPCS: 10005; 88172; 88173; 88305